=== PATIENT | male | born 1985 | race Caucasian/White ===

== ENCOUNTER 2017-11-25 20:42 | Emergency (ER) | payer BC, OTHER ==
[~2017-11-25] VITALS: Ht 172.7 cm; Wt 92.3 kg
[~2017-11-25 20:42] MED LIST: BIOF500C2 PO; DEXT1LIQ58 PO
[2017-11-25 20:53] VITALS: Ht 172.7 cm; Wt 92.3 kg
[2017-11-25] MEDS ORDERED: SODIUM CHLORIDE 0.9% 1000ML 1,000 ML IV STA (21:06)
[2017-11-25 21:33] LABS: BASO % 0.1 %; BASO ABS # 0.01 K/uL (0-0.2); EOS % 0.1 %; EOS ABS # 0.01 K/uL (0-0.5); HEMATOCRIT 40.8 % (42-52); HEMOGLOBIN 14.7 g/dL (14.0-18.0); IG# 0.04 K/uL (0.00-0.02); LYMPH % 5.9 %; LYMPH ABS # 0.81 K/uL (1.2-3.4); MEAN CELL VOLUME 86.8 fL (80-100); MEAN CORPUSCULAR HEMOGLOBIN 31.3 pg (25-34); MEAN PLATELET VOLUME 9.7 fL (7.4-10.4); MONO % 7.3 %; NEUT % 86.3 %; NEUT ABS # 11.91 K/uL (1.4-6.5); PLATELET COUNT 227 K/uL (130-400); RED CELL DISTRIBUTION WIDTH CV 12.5 % (11.5-14.5); RED CELL DISTRIBUTION WIDTH SD 40.2 fL (36.4-46.3); WHITE BLOOD COUNT 13.78 K/uL (4.8-10.8)
[2017-11-25 21:48] LABS: INFLUENZA B ANTIGEN Neg for Influ B (NEG)
[2017-11-25 21:56] LABS: CREATININE 1.21 mg/dl (0.60-1.40); POTASSIUM 3.4 mmol/L (3.5-5.1)
[2017-11-25 22:24] VITALS: TEMP 37.1
--- NOTE | 2017-11-25 22:31 | DIAGNOSTIC IMAGING REPORT ---
CHEST 2 VIEWS ROUTINE CLINICAL HISTORY: Cough and chills. COMPARISON STUDY: Chest radiograph February 16, 2010. FINDINGS: Lung volumes are normal. No pneumothorax or pleural effusion is noted. There is left lower lobe consolidation with obscuration of the left hemidiaphragm. Cardiomediastinal silhouette is normal. Pulmonary vascularity is normal. IMPRESSION: Moderate left lower lobe consolidation highly suggestive of pneumonia. Post treatment radiographs to ensure resolution are recommended. Electronically signed by: Fran Clark M.D. 11/25/2017 10:30 PM Dictated Date/Time: 11/25/2017 10:29 PM
[2017-11-25] MEDS ORDERED: DOXY100C76 PO (22:37)
[2017-11-25] MEDS ORDERED: PRVHFAIN INH (22:37)
[2017-11-25] MEDS ORDERED: DOXYCYCLINE HYCLATE 100 MG CAP PO ONE (22:45)
[2017-11-25 22:46] VITALS: BP 102/63; PULSE 96; O2SAT 96
--- NOTE | 2017-11-26 00:34 | EMERGENCY ROOM VISIT NOTE ---
History Report prepared by Pawan: Obie Petty Under the Supervision of: Dr. J Carlos Espitia M.D. First contact with patient: 21:00 Chief Complaint: FEVER Stated Complaint: FEVER & CHEST PAINS History of Present Illness The patient is a 32 year old male who presents to the Emergency Room with complaints of worsening pain in his left chest that began roughly 30 minutes ago. The patient states that he has been experiencing a "chest cold" since Saturday, with a persistent cough which also worsened this afternoon. His chest pain is worsened with deep inhalation. His cough is producing a mucous. He did experience alternating chills/fevers when his chest pain onset. The patient denies any melena, hematuria, vomiting, blood in the stool, vomiting nausea, or diarrhea. The patient did have a cardiac ablation when he was 15 years old secondary to chronic tachycardia. He does not use hormone therapy, and has not taken any long trips recently. Source of History: patient Onset: 30 minutes ago Position: chest (left) Timing: worsening Modifying Factors (Worsening): other (Deep inhalation) Associated Symptoms: + fevers, + chills, + cough, No vomiting Review of Systems See HPI for pertinent positives and negatives. A total of ten systems were reviewed and were otherwise negative. Past Medical & Surgical Hx of Tachycardia with Cardiac Ablation Family History No pertinent family history Social History Smoking Status: Never Smoker Alcohol Use: occasionally Drug Use: none Marital Status: single Occupation Status: employed Current/Historical Medications Scheduled Albuterol (Ventolin Hfa), 2 PUFFS INH QID Bioflavonoid Products (Vitamin C), 1 TAB PO DAILY Doxycycline Monohydrate (Monodox), 100 MG PO BID Scheduled PRN Dextromethorphan-Phenylephrine (Vicks Dayquil Cold & Flu), 1 DOSE PO UD PRN for Cold/Flu Symptoms Allergies Coded Allergies: Chocolate (Verified Allergy, Unknown, Unknown, 04/08/16) Dust (Verified Allergy, Unknown, Unknown, 04/08/16) Physical Exam Vital Signs Date Time Temp Pulse Resp B/P (MAP) Pulse Ox O2 Delivery O2 Flow Rate FiO2 11/25/17 22:46 96 18 102/63 96 11/25/17 22:24 37.1 96 18 102/63 96 Room Air 11/25/17 21:20 99 11/25/17 20:53 37.6 111 16 114/73 96 Room Air Physical Exam Physical Exam GENERAL: He is oriented to person, place, and time. He appears well-developed and well-nourished. He does not appear distressed. ____ HENT: Exam performed. Head: Normocephalic and atraumatic. Right Ear: External ear normal. No mastoid tenderness. Left Ear: External ear normal. No mastoid tenderness. Mouth/Throat: The oropharynx is clear and moist. No trismus in the jaw. No dental abscesses or uvula swelling. No oropharyngeal exudate or tonsillar abscesses. ____ EYES: Conjunctivae and EOM are normal. Pupils are equal, round, and reactive to light. Right eye exhibits no discharge. Left eye exhibits no discharge. No scleral icterus. ____ NECK: Normal range of motion. Neck supple. No JVD present. No spinous process tenderness present. No carotid bruit present. No rigidity. No tracheal deviation and normal range of motion present. No Brudzinski's sign and no Kernig 's sign noted. ____ CV: Tachycardic rate, regular rhythm, normal heart sounds and intact distal pulses. There is no peripheral edema. Palpable radial pulses bue. ____ PULM/CHEST: Effort normal and breath sounds normal. No respiratory distress. No stridor. He has no wheezes. He has no rales. Chest Wall: He exhibits no tenderness. ____ ABD: The abdomen is soft. Bowel sounds are normal. He has no distension. No mass is present. There is no tenderness. There is no rebound, no guarding, no Mueller's sign and no tenderness at McBurney's point. Rovsig negative MUSC/SKEL: Normal range of motion. There is no peripheral edema, tenderness or deformity. LYMPH: No cervical adenopathy. ____ NEURO: HD is alert and oriented to person, place, and time. He has normal strength. No cranial nerve deficit or sensory deficit. Coordination and gait normal. GCS eye subscore is 4. GCS verbal subscore is 5. GCS motor subscore is 6. Cerebellar tests wnl. ____ SKIN: Skin is warm and dry. He is not diaphoretic. ____ PSYCH: He has a normal mood and affect. His behavior is normal. Judgment and thought content normal. ____ Medical Decision & Procedures ER Provider Diagnostic Interpretation: Radiology results as stated below per my review and radiologist interpretation: CHEST 2 VIEWS ROUTINE CLINICAL HISTORY: Cough and chills. COMPARISON STUDY: Chest radiograph February 16, 2010. FINDINGS: Lung volumes are normal. No pneumothorax or pleural effusion is noted. There is left lower lobe consolidation with obscuration of the left hemidiaphragm. Cardiomediastinal silhouette is normal. Pulmonary vascularity is normal. IMPRESSION: Moderate left lower lobe consolidation highly suggestive of pneumonia. Post treatment radiographs to ensure resolution are recommended. Electronically signed by: Fran Clark M.D. 11/25/2017 10:30 PM Dictated Date/Time: 11/25/2017 10:29 PM Laboratory Results 11/25/17 21:20 Red Blood Count 4.70, Mean Corpuscular Volume 86.8, Mean Corpuscular Hemoglobin 31.3, Mean Corpuscular Hemoglobin Concent 36.0, Mean Platelet Volume 9.7, Neutrophils (%) (Auto) 86.3, Lymphocytes (%) (Auto) 5.9, Monocytes (%) (Auto) 7.3, Eosinophils (%) (Auto) 0.1, Basophils (%) (Auto) 0.1, Neutrophils # (Auto) 11.91, Lymphocytes # (Auto) 0.81, Monocytes # (Auto) 1.00, Eosinophils # (Auto) 0.01, Basophils # (Auto) 0.01 11/25/17 21:20 Test 11/25/17 21:20 11/25/17 21:22 11/25/17 21:25 White Blood Count 13.78 K/uL (4.8-10.8) Red Blood Count 4.70 M/uL (4.7-6.1) Hemoglobin 14.7 g/dL (14.0-18.0) Hematocrit 40.8 % (42-52) Mean Corpuscular Volume 86.8 fL (80-100) Mean Corpuscular Hemoglobin 31.3 pg (25-34) Mean Corpuscular Hemoglobin Concent 36.0 g/dl (32-36) Platelet Count 227 K/uL (130-400) Mean Platelet Volume 9.7 fL (7.4-10.4) Neutrophils (%) (Auto) 86.3 % Lymphocytes (%) (Auto) 5.9 % Monocytes (%) (Auto) 7.3 % Eosinophils (%) (Auto) 0.1 % Basophils (%) (Auto) 0.1 % Neutrophils # (Auto) 11.91 K/uL (1.4-6.5) Lymphocytes # (Auto) 0.81 K/uL (1.2-3.4) Monocytes # (Auto) 1.00 K/uL (0.11-0.59) Eosinophils # (Auto) 0.01 K/uL (0-0.5) Basophils # (Auto) 0.01 K/uL (0-0.2) RDW Standard Deviation 40.2 fL (36.4-46.3) RDW Coefficient of Variation 12.5 % (11.5-14.5) Immature Granulocyte % (Auto) 0.3 % Immature Granulocyte # (Auto) 0.04 K/uL (0.00-0.02) Anion Gap 12.0 mmol/L (3-11) Est Creatinine Clear Calc Drug Dose 95.7 ml/min Estimated GFR () 90.6 Estimated GFR (Non- 78.2 BUN/Creatinine Ratio 12.1 (10-20) Calcium Level 9.0 mg/dl (8.5-10.1) Bedside Lactic Acid Venous 1.94 mmol/L (0.90-1.70) Influenza Type A Antigen Neg for Influ A (NEG) Influenza Type B Antigen Neg for Influ B (NEG) Laboratory results reviewed by me Medications Administered Medications (Trade) Dose Ordered Sig/Nitin Route Start Time Stop Time Status Last Admin Dose Admin Sodium Chloride 1,000 ml @ 999 mls/hr Q1H1M STAT IV 11/25/17 21:06 11/25/17 22:06 DC 11/25/17 21:23 999 MLS/HR Doxycycline Hyclate (Vibramycin Cap) 100 mg ONE ONCE PO 11/25/17 22:45 11/25/17 22:46 DC 11/25/17 22:42 100 MG ECG Per My Interpretation Indication: chest pain Rate (beats per minute): 103 Findings: other (No TODD/STD, SD, QTC, QRS intervals within normal limits. ) ED Course 2100: The patient was evaluated in room B10. A complete history and physical exam was performed. 2105: Ordered Sodium Chloride 1000 mL @ 999 mL/hr IV. 2240: Upon reevaluation the patient's vitals are stable. Labs show a mild leukocytosis. BUN is within normal limits, Chest X-Ray is concerning for pneumonia. No HCAP risk factors, patient will be discharged with antibiotics. First dosage of antibiotics given in the department. DISCHARGE - Plan of care discussed with patient and questions answered. The patient was given both verbal and printed discharge instructions. The patient verbalized understanding and ability to comply. The patient is to seek outpatient follow up as noted in the discharge instructions. The patient verbalized understanding and ability to comply. The patient is discharged in stable condition. The patient was instructed to return for worsening symptoms. 2244: Ordered Doxycycline 100 mg PO. Medical Decision Upon reevaluation the patient's vitals are stable. Labs show a mild leukocytosis. BUN is within normal limits, Chest X-Ray is concerning for pneumonia. No HCAP risk factors, patient will be discharged with antibiotics. First dosage of antibiotics given in the department. DISCHARGE - Plan of care discussed with patient and questions answered. The patient was given both verbal and printed discharge instructions. The patient verbalized understanding and ability to comply. The patient is to seek outpatient follow up as noted in the discharge instructions. The patient verbalized understanding and ability to comply. The patient is discharged in stable condition. The patient was instructed to return for worsening symptoms. Medication Reconcilliation Current Medication List: was personally reviewed by me Blood Pressure Screening Patient's blood pressure: Normal blood pressure Impression Primary Impression: Pneumonia Scribe Attestation The scribe's documentation has been prepared under my direction and personally reviewed by me in its entirety. I confirm that the note above accurately reflects all work, treatment, procedures, and medical decision making performed by me. The chart was completed utilizing [employer] Speech voice recognition software. Grammatical errors, random word insertions, pronoun errors, and incomplete sentences are an occasional consequence of this system due to software limitations, ambient noise, and hardware issues. Any formal questions or concerns about the content, text, or information contained within the body of this dictation should be directly addressed to the physician for clarification. Departure Information Dispostion Home / Self-Care Prescriptions Albuterol (Ventolin Hfa) 60 Puffs/5400 Mcg Aers 2 PUFFS INH QID for 5 Days, #1 INHALER Prov: Nupur, J Carlos ., M.D. 11/25/17 Doxycycline Monohydrate (Monodox) 100 Mg Cap 100 MG PO BID for 7 Days, #14 CAP Prov: J Carlos Espitia M.D. 11/25/17 Referrals Eriberto Anthony MD (PCP) Forms HOME CARE DOCUMENTATION FORM, IMPORTANT VISIT INFORMATION Patient Instructions My [facility] Additional Instructions Return to the emergency department if you develop increased shortness of breath or cough up blood. Problem Qualifiers Primary Impression: Pneumonia Pneumonia type: due to unspecified organism Laterality: unspecified laterality Lung location: unspecified part of lung Qualified Codes: J18.9 - Pneumonia, unspecified organism
== END 2017-11-25 22:46 | disposition home or self-care (01) ==
LOC: C.EDB 20:43
DX: J18.9 Pneumonia, unspecified organism (principal); Z91.018 Allergy to other foods; Z91.048 Other nonmedicinal substance allergy status

== ENCOUNTER 2019-08-06 13:32 | Inpatient (IN) ==
[2019-08-06 14:11] LABS: Basophils # (auto) 0.02 K/uL (0-0.2); Basophils % (auto) 0.4 %; Eosinophils # (auto) 0.07 K/uL (0-0.5); Eosinophils % (auto) 1.4 %; Hematocrit (blood only) 42.4 % (42-52); Hemoglobin 14.7 g/dL (14.0-18.0); Immature Granulocytes # (auto) 0.01 K/uL (0.00-0.02); Immature Granulocytes % (auto) 0.2 %; Lymphocytes # (auto) 1.67 K/uL (1.2-3.4); Lymphocytes % (auto) 33.4 %; Mean Corpuscular Hemoglobin 30.9 pg (25-34); Mean Corpuscular Hgb Conc 34.7 g/dL (32-36); Mean Corpuscular Volume 89.3 fL (80-100); Mean Platelet Volume 9.5 fL (7.4-10.4); Monocytes # (auto) 0.49 K/uL (0.11-0.59); Monocytes % (auto) 9.8 %; Neutrophils # (auto) 2.74 K/uL (1.4-6.5); Neutrophils % (auto) 54.8 %; Platelet Count 277 K/uL (130-400); RDW Coefficient of Variation 12.5 % (11.5-14.5); RDW Standard Deviation 40.2 fL (36.4-46.3); Red Blood Count 4.75 M/uL (4.7-6.1)
[2019-08-06 14:32] LABS: BUN Creatinine Ratio 16.2 (10-20); Calcium 8.8 mg/dl (8.5-10.1); Creatinine Clr Calc Pharmacy 118.7 ml/min; Est GFR (African American) 111.2; Est GFR (Non-African American) 95.9; Potassium 3.6 mmol/L (3.5-5.1)
[2019-08-06 14:34] LABS: Acetaminophen < 2 ug/ml (10-30)
[2019-08-06 14:35] LABS: Salicylate < 1.7 mg/dl (2.8-20)
[2019-08-06 14:43] LABS: Albumin Globulin Ratio 1.1 (0.9-2); Bilirubin,Total 0.7 mg/dl (0.2-1); Globulin 3.6 gm/dl (2.5-4.0); Thyroid Stimulating Hormone 1.63 uIu/ml (0.300-4.500); Total Protein 7.6 gm/dl (6.4-8.2)
[2019-08-06 15:27] LABS: Appearance Urine Clear (Clear); Bilirubin Urine Negative (Negative); Blood Urine Negative (Negative); Color Urine Yellow; Glucose Urine UA Negative (Negative); Ketones Urine Negative (Negative); Leukocyte Esterase Urine Negative (Negative); Nitrite Urine Negative (Negative); Protein Urine Negative (Negative); Specific Gravity Urine 1.014 (1.000-1.030); Urobilinogen Urine Negative (Negative)
[2019-08-06 15:49] VITALS: O2SAT 99
[2019-08-06 15:51] LABS: Amphetamines+Metham, Urine Neg (Neg); Barbiturates, Urine Neg (Neg); Benzodiazepine, Urine Neg (Neg); Cocaine, Urine Neg (Neg); MDMA (Ecstacy), Urine Neg (Neg); Methadone, Urine Neg (Neg); Opiate, Urine Neg (Neg); Phencyclidine, Urine Neg (Neg)
--- NOTE | 2019-08-06 16:20 | Emergency Department Note ---
Entered by Chastity Ashley acting as a scribe for History of Present Illness General Chief complaint: Mental Health Evaluation Stated complaint: DEPRESSION, SENT BY DR ANTHONY Time Seen by Provider: 08/06/19 13:38 Source: patient History of Present Illness Onset (ago): day(s) 10 Location: head Pain Consistency: + other (worsening) Quality: + other (mental health) Associated symptoms: + denies other symptoms (abdominal pain, urinary symptoms, relationship issues, financial issues, issues with work), + loss of appetite and + other (abnormal sleeping, SI with plan); no nausea/vomiting The patient is a 34 year old male w/ PMHx appendicitis, RFA, and depression who presents to the ED for a mental health evaluation. The patient states that over the last 10 days he has had increasing suicidal thoughts. He reports that he has thought of several plans including use a gun or a car. He states that nothing has really bought them on and he has never had thoughts like this before. He reports that he has had a loss of appetite the last few days and has not been sleeping normally. He states that sometimes he sleeps too much and other times not enough. The patient states that he went to his PCP for it today and they sent him here. He notes that he does have access to guns, knives, and weapons. He notes that he was on Zoloft for a month last fall for depression. The patient notes that he doesnt remember the last time he moved his bowels. The patient denies abdominal pain, nausea, vomiting, urinary symptoms, relationship issues, financial issues, and issue with work. Allergies Allergy/AdvReac Type Severity Reaction Status Date / Time Dust Allergy Unknown Unknown Uncoded 01/22/18 07:58 Past Med/Surg History Medical History Acute appendicitis Depression Surgical History History of cardiac radiofrequency ablation (RFA) Family History Other No significant family history Social History Preferred Language: Uzbek Communication Ability: Effective Taker Off Braker Machine Required: No Beliefs That Will Affect Care: None marital status: Current Living Situation: Spouse current occupational status: employed Feels Safe at Home: Yes Smoking Status: Never smoker Review of Systems See HPI for pertinent positives & negatives. and A total of 10 systems reviewed and were otherwise negative Physical Exam Vital Signs Vital Signs - 24 hr 08/06/19 13:33 08/06/19 15:32 Temperature 36.4 C L Temperature Source Oral Pulse Rate 71 Pulse Rate [Finger] 68 Pulse Rhythm Regular Pulse Rhythm [Finger] Regular Pulse Strength Normal Pulse Strength [Finger] Normal Respiratory Rate 16 18 Respiratory Effort / Characteristics Non-Labored Non-Labored Spontaneous Respiratory Depth Normal Normal Respiratory Pattern Regular Regular Blood Pressure 135/81 Blood Pressure [Right Arm] 124/76 Blood Pressure Mean 99 Blood Pressure Mean [Right Arm] 92 Blood Pressure Position Sitting Blood Pressure Position [Right Arm] Lying Pulse Oximetry 98 99 Oxygen Delivery Method Room Air Room Air Sepsis Recent Fever Within 48 Hours No Sepsis Action Taken by Nursing No Action Required GENERAL: Well nourished, NAD, non-toxic. EYE EXAM: Normal conjunctiva. PERRL, no anisocoria and EOM's grossly intact w/o pain. OROPHARYNX: Moist mucous membranes. Grossly normal dentition. NECK: Supple, no nuchal rigidity, no adenopathy, non-tender. No signs of meningismus. LUNGS: Clear to auscultation. Normal chest wall mechanics. HEART: NSR, no MRG. ABDOMEN: Abdomen soft, non-tender, normo-active bowel sounds, no masses, no rebound or guarding. BACK: No CVA TTP. SKIN: No rashes and no bruising. UPPER EXTREMITIES: Upper extremities are grossly normal. LOWER EXTREMITIES: No pitting edema. No calf pain. NEURO EXAM: A&O x3, cranial nerves II-XII grossly intact, normal speech, moves all 4 extremities on command w/o issue. PSYCH: Positive SI with a plan. Negative HI or AVH. Flat affect. Course Course 1341: I reviewed the patient's outpatient note from today which states that he was thinking of suicide without a plan. He was referred to the ED. 1348: The patient was evaluated in room A5. A complete history and physical exam was performed. 1545: Psych recommends admission for the patient. 1707: The patient was accepted to [address] [place] [address] at this time. Medical Decision Making Differential Diagnosis Differential diagnoses considered include mood disorder, infection, hypoglycemia, electrolyte abnormalities, cardiac sources, intracerebral event, toxicologic, neurologic, as well as others. Medical Records Attestation: I reviewed the patient's medical records. I reviewed Dr. Marissa Bejarano's outpatient clinic note which was faxed over. T his noted a concern for suicidal ideation with possible plan. Home Medications Current Medication List: was personally reviewed by me Laboratory Data Attestation: I reviewed the patient's lab results. Result diagrams: 08/06/19 13:56 08/06/19 13:56 Lab Results 08/06/19 08/06/19 08/06/19 Range/Units 13:56 13:56 13:56 WBC 5.00 (4.8-10.8) K/uL RBC 4.75 (4.7-6.1) M/uL Hgb 14.7 (14.0-18.0) g/dL Hct 42.4 (42-52) % MCV 89.3 (80-100) fL MCH 30.9 (25-34) pg MCHC 34.7 (32-36) g/dL RDW Std Deviation 40.2 (36.4-46.3) fL RDW Coeff of Darius 12.5 (11.5-14.5) % Plt Count 277 (130-400) K/uL MPV 9.5 (7.4-10.4) fL Immature Gran % (Auto) 0.2 % Neut % (Auto) 54.8 % Lymph % (Auto) 33.4 % [place] % (Auto) 9.8 % Eos % (Auto) 1.4 % Baso % (Auto) 0.4 % Immature Gran # (Auto) 0.01 (0.00-0.02) K/uL Neut # (Auto) 2.74 (1.4-6.5) K/uL Lymph # (Auto) 1.67 (1.2-3.4) K/uL [place] # (Auto) 0.49 (0.11-0.59) K/uL Eos # (Auto) 0.07 (0-0.5) K/uL Baso # (Auto) 0.02 (0-0.2) K/uL Sodium 140 (136-145) mmol/L Potassium 3.6 (3.5-5.1) mmol/L Chloride 108 H (98-107) mmol/L Carbon Dioxide 28 (21-32) mmol/L Anion Gap 4.0 (3-11) BUN 16 (7-18) mg/dl Creatinine 1.01 (0.6-1.4) mg/dl Est Cr Clr Drug Dosing 118.7 ml/min Est GFR ( Amer) 111.2 Est GFR (Non-Af Amer) 95.9 BUN/Creatinine Ratio 16.2 (10-20) Glucose 112 H (70-99) mg/dl Calcium 8.8 (8.5-10.1) mg/dl Total Bilirubin 0.7 (0.2-1) mg/dl AST 15 (15-37) U/L ALT 30 (12-78) U/L Alkaline Phosphatase 51 (45-117) U/L Total Protein 7.6 (6.4-8.2) gm/dl Albumin 4.0 (3.4-5.0) gm/dl Globulin 3.6 (2.5-4.0) gm/dl Albumin/Globulin Ratio 1.1 (0.9-2) TSH 1.630 (0.300-4.500) uIu/ml Urine Color Urine Appearance (Clear) Urine pH (4.5-7.5) Ur Specific [place] (1.000-1.030) Urine Protein (Negative) Urine Glucose (UA) (Negative) Urine Ketones (Negative) Urine Blood (Negative) Urine Nitrite (Negative) Urine Bilirubin (Negative) Urine Urobilinogen (Negative) Ur Leukocyte Esterase (Negative) Salicylates < 1.7 L (2.8-20) mg/dl Urine Opiates Screen (Neg) Ur Methadone, Qual (Neg) Acetaminophen < 2 L (10-30) ug/ml Urine Barbiturates (Neg) Ur Phencyclidine (PCP) (Neg) U Amphetamin/Meth Scrn (Neg) MDMA (Ecstasy) Screen (Neg) U Benzodiazepines Scrn (Neg) Ur Cocaine Metabolite (Neg) U Marijuana (THC) Screen (Neg) Ethyl Alcohol mg/dL (0-3) mg/dl 08/06/19 08/06/19 08/06/19 Range/Units 13:56 14:50 14:50 WBC (4.8-10.8) K/uL RBC (4.7-6.1) M/uL Hgb (14.0-18.0) g/dL Hct (42-52) % MCV (80-100) fL MCH (25-34) pg MCHC (32-36) g/dL RDW Std Deviation (36.4-46.3) fL RDW Coeff of Darius (11.5-14.5) % Plt Count (130-400) K/uL MPV (7.4-10.4) fL Immature Gran % (Auto) % Neut % (Auto) % Lymph % (Auto) % [place] % (Auto) % Eos % (Auto) % Baso % (Auto) % Immature Gran # (Auto) (0.00-0.02) K/uL Neut # (Auto) (1.4-6.5) K/uL Lymph # (Auto) (1.2-3.4) K/uL [place] # (Auto) (0.11-0.59) K/uL Eos # (Auto) (0-0.5) K/uL Baso # (Auto) (0-0.2) K/uL Sodium (136-145) mmol/L Potassium (3.5-5.1) mmol/L Chloride (98-107) mmol/L Carbon Dioxide (21-32) mmol/L Anion Gap (3-11) BUN (7-18) mg/dl Creatinine (0.6-1.4) mg/dl Est Cr Clr Drug Dosing ml/min Est GFR ( Amer) Est GFR (Non-Af Amer) BUN/Creatinine Ratio (10-20) Glucose (70-99) mg/dl Calcium (8.5-10.1) mg/dl Total Bilirubin (0.2-1) mg/dl AST (15-37) U/L ALT (12-78) U/L Alkaline Phosphatase (45-117) U/L Total Protein (6.4-8.2) gm/dl Albumin (3.4-5.0) gm/dl Globulin (2.5-4.0) gm/dl Albumin/Globulin Ratio (0.9-2) TSH (0.300-4.500) uIu/ml Urine Color Yellow Urine Appearance Clear (Clear) Urine pH 8.0 H (4.5-7.5) Ur Specific [place] 1.014 (1.000-1.030) Urine Protein Negative (Negative) Urine Glucose (UA) Negative (Negative) Urine Ketones Negative (Negative) Urine Blood Negative (Negative) Urine Nitrite Negative (Negative) Urine Bilirubin Negative (Negative) Urine Urobilinogen Negative (Negative) Ur Leukocyte Esterase Negative (Negative) Salicylates (2.8-20) mg/dl Urine Opiates Screen Neg (Neg) Ur Methadone, Qual Neg (Neg) Acetaminophen (10-30) ug/ml Urine Barbiturates Neg (Neg) Ur Phencyclidine (PCP) Neg (Neg) U Amphetamin/Meth Scrn Neg (Neg) MDMA (Ecstasy) Screen Neg (Neg) U Benzodiazepines Scrn Neg (Neg) Ur Cocaine Metabolite Neg (Neg) U Marijuana (THC) Screen Neg (Neg) Ethyl Alcohol mg/dL < 3.0 (0-3) mg/dl Blood Pressure Blood Pressure Findings: Elevated blood pressure Blood Pressure Disposition: elevated BP felt to be situational MDM Narrative The patient is a 34 year old male w/ PMHx appendicitis, RFA, and depression who presents to the ED for a mental health evaluation. Patient was seen and evaluated at bedside. The patient did present with concerns for suicidal ideation and depression. The patient was seen at Dr. Anthony's office and referred. I did review the patient's outpatient clinical note by Dr. Anthony. The patient was complaining of increasing depressed mood. The patient also did relate that he did have a plan. The patient does have access to guns. The patient did have blood work completed. The patient was subsequently seen and evaluated by psych case consultant as he was medically clear. Patient was subsequently admitted voluntarily to [facility] for inpatient psychiatric treatment. Impression & Plan Suicidal ideations, Depressed mood Discharge Plan Visit Data *Final* Discharge Date/Time: 08/06/19 17:44 Chief Complaint: Mental Health Evaluation Stated Complaint: DEPRESSION, SENT BY DR ANTHONY ED Provider: Jace Holman Discharge Problem: Suicidal ideations, Depressed mood Patient Disposition: Admitted As Inpatient Discharge Instructions Interventions: ED Discharge Assessment Last Done: 08/06/19 17:44 The harry's documentation has been prepared under my direction and personally reviewed by me in its entirety. I confirm that the note above accurately reflects all work, treatment, procedures, and medical decision making performed by me.
[2019-08-06] MEDS ORDERED: MAGNESIUM HYDROXIDE SUSP 30 ML UDC PO PRN (19:42)
[2019-08-06] MEDS ORDERED: ACETAMINOPHEN 325 MG TAB PO PRN (19:42)
[2019-08-06] MEDS ORDERED: ALUMINUM/MAGNESIUM SUSP 30 ML UDC PO PRN (19:42)
[2019-08-06] MEDS ORDERED: BISMUTH SUBSALICYLATE PER ML OMNICELL CHARGE PO PRN (19:42)
[2019-08-06] MEDS ORDERED: SODIUM CHLORIDE 0.65% NA SOLN 45 ML (OCEAN) PRN (19:42)
[2019-08-07] MEDS ORDERED: SERTRALINE HCL 50 MG TABLET PO ONE ×2 (12:20→12:21)
--- NOTE | 2019-08-07 12:34 | History & Physical ---
Date of Service August 07, 2019 Impression / Recommendations Impression This 34-year-old man has a history of recurrent major depression beginning in childhood. He notes that for the past 3 years he has been experiencing progressively worsening depression, with accelerated feelings of depression in the past month, without any precipitating cause identified other than, perhaps, the fact that he has been less occupied with his usual source of work. In addition to depressed mood, crying spells, apathy, anhedonia, anergia, insomnia, and psychosocial withdrawal, he has had recurrent and escalating thoughts of suicide that include thoughts of crashing his car (while driving it) and shooting himself (with access to firearms). There is a family history of major depression and the patient reports that his father has a history of favorable response to antidepressant medications. Alcohol and other chemical substances do not appear to be a factor in this case. The patient enjoys the support of his and family. 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 (He has a bachelor's degree from [employer] in philosophy.) He had a trial of an unnamed medication during childhood (possibly Prozac), but does not work call the response. More recently, about a year ago, he was placed on sertraline at an unknown dose for 1 month by his primary care physician, but while he had no difficulty tolerating sertraline he did not go back to continue the medication and he believes that he was placed on a "starting dose." (1) Depression: 08/06/19 -Patient has a history of recurrent depression, beginning in childhood. Apart from what apparently was a brief trial of an antidepressant medication during childhood, and, more recently, a trial last year of sertraline at an unknown dose for 1 month, the patient has not had any formal psychiatric treatment. -We have admitted the patient to the [facility] behavioral health unit. He has been referred for individual, group, and activity therapies --and we are encouraging active participation. Family interventions were also recommended. -The patient reports that he tolerated sertraline last year without any noted side effects. Material risks and anticipated benefits of sertraline, including review of various side effects were reviewed with the patient. He has several questions and indicated understanding. Present on Admission?: Yes (2) Suicidal ideations: 08/06/19 -The patient reports a history of recurrent thoughts of suicide. He notes that these thoughts have become more intense and more pronounced in the past several weeks. The thoughts included thoughts of crashing his car (and these thoughts occur while he is actually driving a car) and he has also had recurrent thoughts of shooting himself, and has access to firearms. -The patient notes that he does not currently have suicidal intent, but is understandably concerned because the intensity of the suicidal thoughts has been increasing, both in terms of intensity and in terms of frequency. -The patient has been placed on suicide precautions. We have referred him for individual, group and activity therapies in order to assist the patient in improving his individual coping strategies. Present on Admission?: Yes Inventory Assets Strengths: Motivated to treatment. Supportive family ( in particular). Intelligent. Reasonable insight. The patient, for example, is able to recognize that his suicidal thoughts are part of an illness Needs: Depression. Resolution of suicidal thoughts. Improved individual coping strategies.. Risk Factors Assessment History of recurrent depression. Active suicidal thoughts. Male: Yes : Yes Do You Have Access To A Gun?: Yes Health Problems: No Mental Health Diagnoses: Yes Substance Use Disorders: No Previous Attempt: No Previous Psychiatric Hospitalization: No Hopelessness: No Smoker: No Protective Factors Assessment Gnosticism Beliefs: No : Yes Responsible for Young Children: Yes Employed: Yes ([employer]) Stable Relationships: Yes Supportive Family: Yes Good Rapport with Provider: Yes Absence of Any Risk Factors Above: No Psychiatric History Identifying Data MARY PEDROZA is a 34-year-old M who currently lives in the [place] with his and 11=year-old stepson. He has a history of recurrent depression and suicidal ideation, and was admitted on 08/06/19 17:24 on a 201 voluntary agreement Chief Complaint "Depression. Worsening thoughts of suicide." History of Present Illness The patient is a 34-year-old man who reports a history of depression dating back to his childhood. Patient describes the depression as being intermittent, but notes that it has been present and intensifying for the past 3 years. His reported symptoms of depression include depressed mood, crying spells, apathy, anhedonia, anergia, initial and intermittent insomnia, anxious rumination, anxious distress, and psychosocial withdrawal. Patient reports that he was given an antidepressant medication as a child, and believes that medication was Prozac. More recently, approximately a year ago, he was given a one-month prescription for sertraline (dose unknown) by his primary care physician. He reports that he took the sertraline for a month, experienced no side effects from it, but independently decided to not take the medication because he "[he does not] like the idea of taking medications and thought [he] could do it on [his] own." In recent weeks, the patient experienced worsening symptoms of depression and more frequent thoughts of suicide. 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 The patient's thoughts of suicide have been very specific, and he notes that when driving his car he will periodically have thoughts with an associated impulse to crashes car into a tree or driving off the road. There are also guns in his home, and his thoughts have included shooting himself. He reports that he does not have a history of suicide attempts, but notes that these thoughts have become more intrusive and more pronounced. He confided in his that he was having suicidal thoughts, and his took action by hiding his guns and escorted the patient to his primary care physician. The patient reported his suicidality to his primary care physician and arrangements were made for the patient to be evaluated for admission to the behavioral health unit at [facility]. Past Psychiatric History Previous Psych History: The patient reports that he was treated for depression as a child. He was placed on an antidepressant medication which he believes was Prozac, but he is not certain. He does not recall the dose of the medication and does not recall the name of the medication with any certainty. Subsequent to that, he has experienced recurrent episodes of depression. These episodes have varied in intensity and are often associated with anxious distress. Current Psychiatric Diagnosis: Major Depressive Disorder Outpatient Services: Patient participated in outpatient treatment for depression as a child. More recently, he was given an antidepressant medication (1 month course) by his primary care physician during the fall 2017. That medication reportedly was sertraline, at an unspecified dose. Patient reports that he tolerated sertraline well and noted no side effects, but after a 1 month trial decided to "tough it out" on his own. Previous Psych Admissions: Patient does not have a history of any previous inpatient psychiatric hospitalizations. Do You Have Access To A Gun?: Yes History of Previous Suicide Attempt: No Describe Attempts in the Past: Denies Past Medication Trials: Prozac (?) As a child, dose unknown. Sertraline in the fall 2017 for 1 month. Dose unknown. The patient had no difficulty tolerating sertraline, but discontinued the medication after a month. He notes that he believes that was "a low dose." Past Head Trauma/Neuro History History of Concussion/Seizure: No The patient believes that he may have experienced a concussion while playing sports in his youth. He notes that he has never been knocked unconscious and has no history of seizures. Allergies Allergy/AdvReac Type Severity Reaction Status Date / Time Dust Allergy Unknown Unknown Uncoded 01/22/18 07:58 Family History Family History of: Depression and Alcoholism/Drug Abuse Family Mental Health History Comment: brother has been a lobsterman alcoholic with some other substance use, father has depression and on meds. Patient is uncertain as to which medications his father is currently taking, but notes that his father does have a favorable response to medications for depression. Alcohol History Hx of Alcohol Use Over the Past 12 Months: Yes (1x montly, last drink this past weekend) AUDIT Total Score: 1 Smoking Use Have You Smoked or Used Tobacco Products in the Last 30 Days: No Smoking Status: Never smoker Substance History Hx of Prescription Med Misuse Over the Past 12 Months: No Hx of Over the Counter Med Misuse Over the Past 12 Months: No Hx of Inhalent Misuse Over the Past 12 Months: No Hx of Organic Substance Use Over the Past 12 Months: No Hx of Illegal Substances/Street Drug Use Over Past 12 Months: No Problems as a Result of Past Substance Use: None Identified Personal History Living Arrangements: Home Living Arrangements Comments: Patient lives with his of 5 years and his 11-year-old stepson. The patient and his serve as the fci parents of the 11-year-old's stepson, and the patient says that he functions in the role of father. Highest Grade Completed: College Highest Grade Completed Comment: Graduated from [employer], majored in Philosophy. Marital Status: Number Of Children: 1 Beliefs That Will Affect Care: None Patient History Medical History Acute appendicitis Depression Surgical History History of cardiac radiofrequency ablation (RFA) Family History Other No significant family history Social History Preferred Language: Romansh Communication Ability: Effective Bottom Stainer Required: No Beliefs That Will Affect Care: None marital status: Current Living Situation: Spouse current occupational status: employed Feels Safe at Home: Yes Smoking Status: Never smoker Review of Systems Review of Systems: All systems reviewed & are unremarkable except as noted in HPI & below The somatic history, review of systems, and physical examination is completed by Salomon Mccormick MD have been reviewed and are accepted for purposes of medical clearance to the behavioral health unit. Physical Exam Psychiatric: Orientation: alert, oriented x 3 and cooperative Apperance: appropriately dressed and appropriately groomed Eye Contact: + fair eye contact Motor Behavior: + psychomotor retardation The patient's speech is spontaneous, but slowed and hesitant. Affect: + depressed affect Mood: + depressed mood Thought Process: goal directed thought process and linear/logical thought process Thought Content: reality based without delusions Patient reports ongoing thoughts of suicide. Today, he reports that he feels he can contract for safety in the hospital, and notes that he feels Homicidal Thoughts: denies homicidal thoughts Hallucinations: no auditory hallucinations Cognition: recent memory grossly intact, remote memory grossly intact, attention grossly intact and language grossly intact Estimated Intelligence: + above average estimated intelligence Insight: + fair insight Judgement: good judgement Vital Signs (Past 24 Hours): Last Vital Signs Temp 36.5 C 08/07/19 06:38 Pulse 76 08/07/19 06:39 Resp 18 08/07/19 06:38 BP 114/75 08/07/19 06:39 Pulse Ox 99 08/06/19 17:32 Results & Data Laboratory Results Laboratory Results - last 24 hr 08/06/19 08/06/19 08/06/19 13:56 13:56 13:56 WBC 5.00 RBC 4.75 Hgb 14.7 Hct 42.4 MCV 89.3 MCH 30.9 MCHC 34.7 RDW Std Deviation 40.2 RDW Coeff of Darius 12.5 Plt Count 277 MPV 9.5 Immature Gran % (Auto) 0.2 Neut % (Auto) 54.8 Lymph % (Auto) 33.4 [place] % (Auto) 9.8 Eos % (Auto) 1.4 Baso % (Auto) 0.4 Immature Gran # (Auto) 0.01 Neut # (Auto) 2.74 Lymph # (Auto) 1.67 Inyo # (Auto) 0.49 Eos # (Auto) 0.07 Baso # (Auto) 0.02 Sodium 140 Potassium 3.6 Chloride 108 H Carbon Dioxide 28 Anion Gap 4.0 BUN 16 Creatinine 1.01 Est Cr Clr Drug Dosing 118.7 Est GFR ( Amer) 111.2 Est GFR (Non-Af Amer) 95.9 BUN/Creatinine Ratio 16.2 Glucose 112 H Calcium 8.8 Total Bilirubin 0.7 AST 15 ALT 30 Alkaline Phosphatase 51 Total Protein 7.6 Albumin 4.0 Globulin 3.6 Albumin/Globulin Ratio 1.1 TSH 1.630 Urine Color Urine Appearance Urine pH Ur Specific [place] Urine Protein Urine Glucose (UA) Urine Ketones Urine Blood Urine Nitrite Urine Bilirubin Urine Urobilinogen Ur Leukocyte Esterase Salicylates < 1.7 L Urine Opiates Screen Ur Methadone, Qual Acetaminophen < 2 L Urine Barbiturates Ur Phencyclidine (PCP) U Amphetamin/Meth Scrn MDMA (Ecstasy) Screen U Benzodiazepines Scrn Ur Cocaine Metabolite U Marijuana (THC) Screen Ethyl Alcohol mg/dL 08/06/19 08/06/19 08/06/19 13:56 14:50 14:50 WBC RBC Hgb Hct MCV MCH MCHC RDW Std Deviation RDW Coeff of Darius Plt Count MPV Immature Gran % (Auto) Neut % (Auto) Lymph % (Auto) [place] % (Auto) Eos % (Auto) Baso % (Auto) Immature Gran # (Auto) Neut # (Auto) Lymph # (Auto) [place] # (Auto) Eos # (Auto) Baso # (Auto) Sodium Potassium Chloride Carbon Dioxide Anion Gap BUN Creatinine Est Cr Clr Drug Dosing Est GFR ( Amer) Est GFR (Non-Af Amer) BUN/Creatinine Ratio Glucose Calcium Total Bilirubin AST ALT Alkaline Phosphatase Total Protein Albumin Globulin Albumin/Globulin Ratio TSH Urine Color Yellow Urine Appearance Clear Urine pH 8.0 H Ur Specific [place] 1.014 Urine Protein Negative Urine Glucose (UA) Negative Urine Ketones Negative Urine Blood Negative Urine Nitrite Negative Urine Bilirubin Negative Urine Urobilinogen Negative Ur Leukocyte Esterase Negative Salicylates Urine Opiates Screen Neg Ur Methadone, Qual Neg Acetaminophen Urine Barbiturates Neg Ur Phencyclidine (PCP) Neg U Amphetamin/Meth Scrn Neg MDMA (Ecstasy) Screen Neg U Benzodiazepines Scrn Neg Ur Cocaine Metabolite Neg U Marijuana (THC) Screen Neg Ethyl Alcohol mg/dL < 3.0 Current Inpatient Medications Current Inpatient Medications: Current Inpatient Medications Acetaminophen (Tylenol) 650 mg PO Q4H PRN PRN Reason: Headache or Minor Fever Stop: 09/05/19 19:41 Al Hydrox/Mg Hydrox/Simethicone (Maalox) 30 ml PO Q4H PRN PRN Reason: GI Upset Stop: 09/05/19 19:41 Bismuth Subsalicylate (Kaopectate) 15 ml PO PRN PRN PRN Reason: Loose Stool Stop: 09/05/19 19:41 Hydroxyzine HCl (Vistaril) 50 mg PO HSZ PRN PRN Reason: Insomnia Stop: 09/05/19 19:41 Hydroxyzine HCl (Vistaril) 25 mg PO Q4H PRN PRN Reason: Anxiety Stop: 09/05/19 19:41 Magnesium Hydroxide (Milk Of Magnesia) 30 ml PO DAILY PRN PRN Reason: Constipation Stop: 09/05/19 19:41 Sertraline HCl (Zoloft) 50 mg PO DAILY ONE Stop: 08/07/19 12:21 Sodium Chloride ([place] Nasal) 1 - 2 sprays NA PRN PRN PRN Reason: Nasal Dryness/Congestion Stop: 09/05/19 19:41
[2019-08-08] MEDS ORDERED: SERTRALINE HCL 50 MG TABLET PO SCH (09:00)
--- NOTE | 2019-08-08 11:59 | Psychiatric Progress Note ---
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 He notes that for the past 3 years he has been experiencing progressively worsening depression, with accelerated feelings of depression in the past month, without any precipitating cause identified other than, perhaps, the fact that he has been less occupied with his usual source of work. In addition to depressed mood, crying spells, apathy, anhedonia, anergia, insomnia, and psychosocial withdrawal, he has had recurrent and escalating thoughts of suicide that include thoughts of crashing his car (while driving it) and shooting himself (with access to firearms). During a family meeting with the patient's yesterday it was disclosed that patient and his have been having a substantial amount of fairly passionate disagreement regarding the parenting strategy for their 11-year-old son (the patient's fedeon, his 's biological child). The son, while only 11, has entered puberty early and is "acting like a teenager," as both parents agree. There seems to be a pretty clear need for a family therapy intervention given the fact that the patient's experience is that he is treated as an extension of his 's authority when it comes to the raising of the child. She refers to the roles as being "coparents," but if he disagrees with her approach she "pulls rank" and reminds him that the son is her biological child and she is in charge when it comes to how he is to be raised. The patient does not retract his assertion that he has been depressed for about 3 years recently, he does note that the fairly precipitous exacerbation of his feelings of depression with associated suicidal thoughts occurred within the context of the recent discord with his , as described above. 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 Alecia lopez, we are helping the patient identify specific personal goals towards which he may work. The patient reports that his primary goal at this point is to apply for and go to law school. He laughingly says, "what can you do with a philosophy degree? Well, you can raise patrick, or you can go to law school." He notes that he is interested in law, and he is quite intelligent. He notes that his plan is to use a temporary hiatus from work (during the winter) to look into taking the LSAT's, and applying for law school. (1) Depression: 08/07/19 -Patient has a history of recurrent depression, beginning in childhood. Apart from what apparently was a brief trial of an antidepressant medication during childhood, and, more recently, a trial last year of sertraline at an unknown dose for 1 month, the patient has not had any formal psychiatric treatment. -We have admitted the patient to the [facility] behavioral health unit. He has been referred for individual, group, and activity therapies --and we are encouraging active participation. Family interventions were also recommended. -The patient reports that he tolerated sertraline last year without any noted side effects. Material risks and anticipated benefits of sertraline, including review of various side effects were reviewed with the patient. He has several questions and indicated understanding. 08/08 -Today, the patient clarifies that while he has been experiencing some symptoms of depression during the course of the past 3 years, his most recent exacerbation of the depressive feelings, with co-occurring thoughts of suicide, occurred within the past 2 to 4 weeks and are largely related to unpleasantness at home, primarily regarding disputes with the patient is having with his concerning their 11-year-old son (the patient's stepson, his 's biological child) within the context of the child's current problematic behaviors. -We are working with the patient and his to help him better understand the need to truly coparent, and, within this context, the patient was able to tell his that he sometimes feels as if she sees him as on an extension of herself when it comes to parenting, rather than a true coparent. Both the patient and his have been counseled, for example, to remove themselves from the presence of their son when they disagree about parenting decision and discuss it primarily, among themselves, and present a united front. -The patient wakes poor sleep with depressed mood and irritability. The difference between his affect today and yesterday may be largely attributable to the fact that he had a full night sleep last night. We discussed strategies for managing insomnia. He notes that he has in the past had a favorable response to melatonin, and says that his plan would be to resume taking it. We also discussed other sleep aids that may include mild sedative such as hydroxyzine. -The patient's dose of sertraline is being increased to 100 mg a day. He indicates that he is tolerating it well without noted side effects. (2) Suicidal ideations: 08/07/19 -The patient reports a history of recurrent thoughts of suicide. He notes that these thoughts have become more intense and more pronounced in the past several weeks. The thoughts included thoughts of crashing his car (and these thoughts occur while he is actually driving a car) and he has also had recurrent thoughts of shooting himself, and has access to firearms. -The patient notes that he does not currently have suicidal intent, but is understandably concerned because the intensity of the suicidal thoughts has been increasing, both in terms of intensity and in terms of frequency. -The patient has been placed on suicide precautions. We have referred him for individual, group and activity therapies in order to assist the patient in improving his individual coping strategies. 08/08 -Patient reports that he is not experiencing suicidal thoughts at this point. He is working actively in individual, group, activity and family interventions towards the goal of achieving improved individual coping strategieswhile also understanding his 's concerns when he "albertina" by disappearing from the home for extensive periods of time. Inventory Assets Strengths: Motivated to treatment. Supportive family ( in particular). Intelligent. Reasonable insight. The patient, for example, is able to recognize that his suicidal thoughts are part of an illness Needs: Depression. Resolution of suicidal thoughts. Improved individual coping strategies.. Risk Factors Assessment Male: Yes : Yes Do You Have Access To A Gun?: Yes Health Problems: No Mental Health Diagnoses: Yes Substance Use Disorders: No Previous Attempt: No Previous Psychiatric Hospitalization: No Hopelessness: No Smoker: No Protective Factors Assessment Jewish Beliefs: No : Yes Responsible for Young Children: Yes Employed: Yes ([employer]) Stable Relationships: Yes Supportive Family: Yes Good Rapport with Provider: Yes Absence of Any Risk Factors Above: No Interval History Chief Complaint "Feeling much better. (Depression)". Review of Systems Sleep Information Total Hours of Sleep: 7 Meal Information Percent Meal Consumed - Breakfast: 100 Percent Meal Consumed - Lunch: 100 Percent Meal Consumed - Dinner: 100 Subjective Subjective Patient was seen & assessed and interval progress reviewed with treatment team. I met individually with the patient in order to assess his current mental status examination, evaluate his response to treatment, make any necessary changes to the patient's treatment regimen and coordination with the patient, and address issues, questions or concerns that may arise. The patient begins by telling me that after good night sleep he is feeling much brighter, and I commented that his affect also appears much brighter than it had yesterday. The patient discussed a family meeting that he had had yesterday with his and unit staff yesterday. An issue that had been suggested at the time of his intake, but not fully disclosed, was the fact that he and his are having certain disagreements regarding managing the behaviors of the patient's 11-year-old stepson. Sided behaviors include truancy and oppositional defiance. The patient noted today that he feels as if his wants to "coparent" the 11-year-old son (biologically her son), but what she means is that she is willing to "coparent" just as long as the patient, as the boy's stepfather, sees his role as the extension of the patient's as the biological parent. However, if he disagrees with a parenting decision that she makes, they do not discuss it but, instead, the 's tendency is simply to say "no, this is my son, and this is my decision." The patient acknowledges that he finds the situation at home at times to be quite stressful and acknowledges that he has been going for long drives, sometimes as long as 10 hours, without telling his where he is (other than to say he is "going out for a drive."). Understandably, of the patient's becomes very concerned with this happens, and we were able to discuss appropriate ways of helping to reassure his . The patient suggested that 1 way would be to allow her to track his whereabouts by activating GPS on his cell phone. There was also discussion of couples therapy to help the patient his learn to truly coparent their son. (The patient has served in the role of his stepson's father for approximately 6 years, and the boy's biological father is only peripherally involved.) Patient voices no thoughts of suicide since admission and notes that he is tolerating sertraline 50 mg a day well without any noted side effects. Physical Exam Psychiatric Orientation: alert, oriented x 3 and cooperative Apperance: appropriately dressed and appropriately groomed Eye Contact: good eye contact Motor Behavior: steady gait and station Speech: normal rate/rhythm/volume of speech Affect: euthymic affect The patient's affect is significantly more animated today. He smiles and laughs appropriately a number of times during the encounter. "My mood is much better. It really helps when I have a good night sleep." Thought Process: goal directed thought process, linear/logical thought process and clear/coherent thought process Thought Content: reality based without delusions Suicidal Thoughts: denies suicidal thoughts Homicidal Thoughts: denies homicidal thoughts Hallucinations: no auditory hallucinations Cognition: recent memory grossly intact, remote memory grossly intact, attention grossly intact and language grossly intact Estimated Intelligence: + above average estimated intelligence Insight: good insight Judgement: good judgement Vital Signs (Past 24 Hours) Last Vital Signs Temp 36.7 C 08/08/19 06:50 Pulse 91 H 08/08/19 06:50 Resp 18 08/08/19 06:50 BP 114/70 08/08/19 06:50 Pulse Ox 99 08/06/19 17:32 Results & Data Current Inpatient Medications Current Inpatient Medications: Current Inpatient Medications Acetaminophen (Tylenol) 650 mg PO Q4H PRN PRN Reason: Headache or Minor Fever Stop: 09/05/19 19:41 Al Hydrox/Mg Hydrox/Simethicone (Maalox) 30 ml PO Q4H PRN PRN Reason: GI Upset Stop: 09/05/19 19:41 Bismuth Subsalicylate (Kaopectate) 15 ml PO PRN PRN PRN Reason: Loose Stool Stop: 09/05/19 19:41 Hydroxyzine HCl (Vistaril) 50 mg PO HSZ PRN PRN Reason: Insomnia Stop: 09/05/19 19:41 Hydroxyzine HCl (Vistaril) 25 mg PO Q4H PRN PRN Reason: Anxiety Stop: 09/05/19 19:41 Magnesium Hydroxide (Milk Of Magnesia) 30 ml PO DAILY PRN PRN Reason: Constipation Stop: 09/05/19 19:41 Sodium Chloride ([place] Nasal) 1 - 2 sprays NA PRN PRN PRN Reason: Nasal Dryness/Congestion Stop: 09/05/19 19:41 Mental Health & Subst Abuse Tx Psychiatrist Name of Psychiatrist: Jose G Sánchez PA-C Psychiatrist's Date of Appointment with Psychiatrist: 09/10/19 Time of Appointment with Psychiatrist: 9am Therapist Name of Therapist: Bindu Connelly LCSW Therapist's Date of Therapist Appointment: 08/12/19 Time of Therapist Appointment: 11am Therapy Appointment Comment: Shawn Sanchez MccameyFORTINO Vehicle Service Attendant Name of Vehicle Service Attendant: Denies Post Discharge Appointments Primary Care Physician Name Of Family Doctor: Dr. Anthony Contact Information Discharge Discharge Address: [address] [place] [id number]
--- NOTE | 2019-08-09 07:32 | Psychiatric Progress Note ---
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 He has had recurrent and escalating thoughts of suicide that include thoughts of crashing his car (while driving it) and shooting himself (with access to firearms). Family meeting with his review recent discord regarding parenting, and he also notes that he has been dissatisfied with his career trajectory. He is working on healthy coping skills and his discharge safety plan, and if he continues to improve, would be appropriate for discharge tomorrow. He will need an interim appointment with his PCP, as his initial appointment at [facility] is not for 30 days. (1) Depression: 08/07/19 -Patient has a history of recurrent depression, beginning in childhood. Apart from what apparently was a brief trial of an antidepressant medication during childhood, and, more recently, a trial last year of sertraline at an unknown dose for 1 month, the patient has not had any formal psychiatric treatment. -We have admitted the patient to the [facility] behavioral health unit. He has been referred for individual, group, and activity therapies --and we are encouraging active participation. Family interventions were also recommended. -The patient reports that he tolerated sertraline last year without any noted side effects. Material risks and anticipated benefits of sertraline, including review of various side effects were reviewed with the patient. He has several questions and indicated understanding. 08/08 -Today, the patient clarifies that while he has been experiencing some symptoms of depression during the course of the past 3 years, his most recent exacerbation of the depressive feelings, with co-occurring thoughts of suicide, occurred within the past 2 to 4 weeks and are largely related to unpleasantness at home, primarily regarding disputes with the patient is having with his concerning their 11-year-old son (the patient's stepson, his 's biological child) within the context of the child's current problematic behaviors. -We are working with the patient and his to help him better understand the need to truly coparent, and, within this context, the patient was able to tell his that he sometimes feels as if she sees him as on an extension of herself when it comes to parenting, rather than a true coparent. Both the patient and his have been counseled, for example, to remove themselves from the presence of their son when they disagree about parenting decision and discuss it primarily, among themselves, and present a united front. -The patient wakes poor sleep with depressed mood and irritability. The difference between his affect today and yesterday may be largely attributable to the fact that he had a full night sleep last night. We discussed strategies for managing insomnia. He notes that he has in the past had a favorable response to melatonin, and says that his plan would be to resume taking it. We also discussed other sleep aids that may include mild sedative such as hydroxyzine. -The patient's dose of sertraline is being increased to 100 mg a day. He indicates that he is tolerating it well without noted side effects. 08/09 -Continue sertraline 100 mg daily. Patient reporting "head cloudiness," but denies other side effects. Continue to monitor. (2) Suicidal ideations: 08/07/19 -The patient reports a history of recurrent thoughts of suicide. He notes that these thoughts have become more intense and more pronounced in the past several weeks. The thoughts included thoughts of crashing his car (and these thoughts occur while he is actually driving a car) and he has also had recurrent thoughts of shooting himself, and has access to firearms. -The patient notes that he does not currently have suicidal intent, but is understandably concerned because the intensity of the suicidal thoughts has been increasing, both in terms of intensity and in terms of frequency. -The patient has been placed on suicide precautions. We have referred him for individual, group and activity therapies in order to assist the patient in improving his individual coping strategies. 08/08 -Patient reports that he is not experiencing suicidal thoughts at this point. He is working actively in individual, group, activity and family interventions towards the goal of achieving improved individual coping strategieswhile also understanding his 's concerns when he "albertina" by disappearing from the home for extensive periods of time. Inventory Assets Strengths: Motivated to treatment. Supportive family ( in particular). Intelligent. Reasonable insight. The patient, for example, is able to recogn ize that his suicidal thoughts are part of an illness Needs: Depression. Resolution of suicidal thoughts. Improved individual coping strategies.. Risk Factors Assessment Male: Yes : Yes Do You Have Access To A Gun?: Yes Health Problems: No Mental Health Diagnoses: Yes Substance Use Disorders: No Previous Attempt: No Previous Psychiatric Hospitalization: No Hopelessness: No Smoker: No Protective Factors Assessment Jain Beliefs: No : Yes Responsible for Young Children: Yes Employed: Yes ([employer]) Stable Relationships: Yes Supportive Family: Yes Good Rapport with Provider: Yes Absence of Any Risk Factors Above: No Interval History Identifying Information MARY EPDROZA is a 34-year-old M who currently lives in the [place] with his and 11-year-old fedeon. He has a history of recurrent depression and suicidal ideation, and was admitted on 08/06/19 17:24 on a 201 voluntary agreement. Chief Complaint "Okay". Review of Systems Sleep Information Total Hours of Sleep: 7.25 Meal Information Percent Meal Consumed - Breakfast: 100 Percent Meal Consumed - Lunch: 95 Percent Meal Consumed - Dinner: 100 Subjective Subjective Patient was seen & assessed and interval progress reviewed with nursing and social work. Staff report he is going to groups and participating in treatment. On my assessment, he reports his mood is improving, but does not yet feel ready to leave, stating his visited yesterday and they were discussing discharge plans and "got into a little tussle," which made him realize "it was premature." Describes difficulties with 11y/o step son which he brought up with , and her response was that he needed to focus on his own issues. Mood was lower and was feeling hopeless after argument with yesterday, but now feels she was trying to help and get him to focus on what he needs to do to recover. Notes he was "being a little too general" with his discharge plan, and is now going through the patient workbook and working on his plan with specific attention to friction within the family. He is also journalling which has been helpful. He has a mild "head cloudiness" which may be related to sertraline as starts soon after taking medication in the am, denies that it is impairing. Physical Exam Psychiatric Orientation: alert and cooperative Apperance: appropriately dressed, appropriately groomed and appeared stated age Eye Contact: good eye contact Motor Behavior: steady gait and station and no abnormal motor movements Speech: normal rate/rhythm/volume of speech Affect: + blunted affect "Okay." Thought Process: goal directed thought process and linear/logical thought process Thought Content: reality based without delusions Suicidal Thoughts: denies suicidal thoughts Homicidal Thoughts: denies homicidal thoughts Cognition: recent memory grossly intact, attention grossly intact and language grossly intact Estimated Intelligence: consistent with education level Insight: good insight Judgement: good judgement Vital Signs (Past 24 Hours) Last Vital Signs Temp 36.5 C 08/09/19 06:41 Pulse 72 08/09/19 06:42 Resp 18 08/09/19 06:41 BP 96/59 L 08/09/19 06:42 Pulse Ox 99 08/06/19 17:32 Results & Data Current Inpatient Medications Current Inpatient Medications: Current Inpatient Medications Acetaminophen (Tylenol) 650 mg PO Q4H PRN PRN Reason: Headache or Minor Fever Stop: 09/05/19 19:41 Last Admin: 08/08/19 17:23 Dose: 650 mg Documented by: Al Hydrox/Mg Hydrox/Simethicone (Maalox) 30 ml PO Q4H PRN PRN Reason: GI Upset Stop: 09/05/19 19:41 Bismuth Subsalicylate (Kaopectate) 15 ml PO PRN PRN PRN Reason: Loose Stool Stop: 09/05/19 19:41 Hydroxyzine HCl (Vistaril) 50 mg PO HSZ PRN PRN Reason: Insomnia Stop: 09/05/19 19:41 Last Admin: 08/08/19 22:15 Dose: 50 mg Documented by: Hydroxyzine HCl (Vistaril) 25 mg PO Q4H PRN PRN Reason: Anxiety Stop: 09/05/19 19:41 Magnesium Hydroxide (Milk Of Magnesia) 30 ml PO DAILY PRN PRN Reason: Constipation Stop: 09/05/19 19:41 Sertraline HCl (Zoloft) 100 mg PO QAM MAGDA Stop: 09/08/19 08:59 Sodium Chloride ([place] Nasal) 1 - 2 sprays NA PRN PRN PRN Reason: Nasal Dryness/Congestion Stop: 09/05/19 19:41 Mental Health & Subst Abuse Tx Psychiatrist Name of Psychiatrist: Jose G Sánchez PA-C Psychiatrist's Date of Appointment with Psychiatrist: 09/10/19 Time of Appointment with Psychiatrist: 9am Therapist Name of Therapist: Bindu DANGW Therapist's Date of Therapist Appointment: 08/12/19 Time of Therapist Appointment: 11am Therapy Appointment Comment: Vishnu Pina [facility], [place] Artificial Insemination Technician Name of Artificial Insemination Technician: Denies Post Discharge Appointments Primary Care Physician Name Of Family Doctor: Dr. Anthony Contact Information Discharge Discharge Address: [address] [place] [id number]
[2019-08-09] MEDS: SERTRALINE HCL 100 MG TABLET PO SCH (08:54)
[2019-08-10 06:49] VITALS: TEMP 98.4
[2019-08-10] MEDS: SERTRALINE HCL 100 MG TABLET PO SCH (08:36)
--- NOTE | 2019-08-10 10:30 | Discharge Summary ---
Date of Service August 10, 2019 History of Present Illness The patient is a 34-year-old man who reports a history of depression dating back to his childhood. Patient describes the depression as being intermittent, but notes that it has been present and intensifying for the past 3 years. His reported symptoms of depression include depressed mood, crying spells, apathy, anhedonia, anergia, initial and intermittent insomnia, anxious rumination, anxious distress, and psychosocial withdrawal. Patient reports that he was given an antidepressant medication as a child, and believes that medication was Prozac. More recently, approximately a year ago, he was given a one-month prescription for sertraline (dose unknown) by his primary care physician. He reports that he took the sertraline for a month, experienced no side effects from it, but independently decided to not take the medication because he "[he does not] like the idea of taking medications and thought [he] could do it on [his] own." In recent weeks, the patient experienced worsening symptoms of depression and more frequent thoughts of suicide. 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 The patient's thoughts of suicide have been very specific, and he notes that when driving his car he will periodically have thoughts with an associated impulse to crashes car into a tree or driving off the road. There are also guns in his home, and his thoughts have included shooting himself. He reports that he does not have a history of suicide attempts, but notes that these thoughts have become more intrusive and more pronounced. He confided in his that he was having suicidal thoughts, and his took action by hiding his guns and escorted the patient to his primary care physician. The patient reported his suicidality to his primary care physician and arrangements were made for the patient to be evaluated for admission to the behavioral health unit at [facility]. Physical Exam Psychiatric Orientation: alert and cooperative Apperance: appropriately dressed, appropriately groomed and appeared stated age Eye Contact: good eye contact Motor Behavior: steady gait and station and no abnormal motor movements Speech: normal rate/rhythm/volume of speech Affect: euthymic affect and mood congruent with affect "Good, a lot better." Thought Process: goal directed thought process and linear/logical thought process Thought Content: reality based without delusions Suicidal Thoughts: denies suicidal thoughts Homicidal Thoughts: denies homicidal thoughts Hallucinations: no auditory hallucinations and no visual hallucinations Cognition: recent memory grossly intact, attention grossly intact and language grossly intact Estimated Intelligence: consistent with education level Insight: good insight Judgement: good judgement Vital Signs (Past 24 Hours) Last Vital Signs Temp 36.9 C 08/10/19 06:47 Pulse 101 H 08/10/19 06:48 Resp 18 08/10/19 06:47 BP 121/72 08/10/19 06:48 Pulse Ox 99 08/06/19 17:32 Principal Diagnosis Major depressive disorder, recurrent, severe without psychosis. Psychiatric Data The patient was hospitalized for 4 days. On admission, he was started on sertraline for depression, and the dose was titrated to 100 mg daily. He tolerated it well with the exception of "head cloudiness and pressure," and at discharge was advised to try taking it at bedtime to minimize this. He was actively engaged in his treatment, attended and participated in groups and therapy, and worked on healthy coping skills and his discharge safety plan. He reported improved mood and resolution of suicidal thoughts. He processed psychosocial stressors contributing to mood symptoms, specifically recent discord with his regarding parenting his fedeon. He also talked about his general dissatisfaction with his career, and sense that at this point in his life he would have a clear career goal. He reported chronic insomnia, for which he had a trial of hydroxyzine 50 mg, but did not like the way it made him feel. He stated a plan to resume melatonin upon discharge, which he has had a favorable response to in the past. He had a family meeting with his on 08/07/2019; she shared that they had a very difficult week, and that her perception about the catalyst for the patient's decompensation was different from his. 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 She did not agree with the way the patient tried to handle the situation, and intervened, and the patient became upset, left, and drove to [place]. During the first week of July, he left on multiple occasions and went driving, and she was worried about him. He acknowledged his judgment had not been the best, and that he did not have a lot of supports or outlets. also shared concerns that he would be discharged prematurely, and encouraged him to really explore his stressors/triggers/ways to cope. She confirmed that firearms were removed from the home. They also discussed getting services for their son, and assistance with parenting. Day of Discharge Assessment Staff report the patient is attending and participating in groups and therapy, processing his stressors, and working on healthy ways to cope and discharge plans. On my assessment, he states that although hydroxyzine helped with sleep the past couple of nights, he does not like the way it made him feel, and plans to resume melatonin upon discharge. He continues to report a sense of "head c loudiness and pressure," but it is tolerable and he is agreeable to continuing the trial of sertraline, taking it at bedtime as noted above. He denies thoughts of harming himself or others, and feels he has a good discharge plan in place. He wants to work on a daily routine and increasing structure at home, focus on improving his relationship with his stepson, and spending time with his family. He states he recognizes it will take time to rebuild trust with his family, but reports hopefulness that things will continue to improve. He denies any safety concerns with discharge, and feels ready to go home today. Transition of Care Transition Of Care Record: was reviewed with the patient Advance Directives Advance Directives Information Provided: Yes Advance Directives: No Mental Health Advance Directive: No Advance Directives on File: No Living Will: No Power of Rubber Turner: No Advance Directives Reason:: Declines as Mental Health Visit. Risk Factors Assessment Risk factors were mitigated by admission to the inpatient unit, use of medications to target depressive symptoms, psychoeducation about his diagnosis and the recommended treatment, involving him in groups and therapy, working on healthy coping skills and a discharge safety plan, family meeting with his , referring him for outpatient psychiatric care and therapy, and processing stressors that led to exacerbation of depression. He is demonstrated improvement in mood and resolution of suicidal thoughts, is performing ADLs independently, eating and sleeping adequately, and requesting discharge. As he is no longer at acute risk of harm to himself, he can be managed as an outpatient at this time. He does not have risk factors for harm to others. Male: Yes : Yes Do You Have Access To A Gun?: Yes Health Problems: No Mental Health Diagnoses: Yes Substance Use Disorders: No Previous Attempt: No Previous Psychiatric Hospitalization: No Hopelessness: No Smoker: No Protective Factors Assessment Christianity Beliefs: No : Yes Responsible for Young Children: Yes Employed: Yes ([employer]) Stable Relationships: Yes Supportive Family: Yes Good Rapport with Provider: Yes Absence of Any Risk Factors Above: No Tobacco Cessation at Discharge Tobacco Cessation Medication Prescribed at Discharge: Not Applicable/Non-Smoker Total Time Total Time Spent: Greater Than 30 Minutes Total Time Includes: Examination of the patient, Discharge Planning and Medication Reconciliation Discharge Data Lab Results 08/06/19 08/06/19 08/06/19 13:56 13:56 13:56 WBC 5.00 RBC 4.75 Hgb 14.7 Hct 42.4 MCV 89.3 MCH 30.9 MCHC 34.7 RDW Std Deviation 40.2 RDW Coeff of Darius 12.5 Plt Count 277 MPV 9.5 Immature Gran % (Auto) 0.2 Neut % (Auto) 54.8 Lymph % (Auto) 33.4 [place] % (Auto) 9.8 Eos % (Auto) 1.4 Baso % (Auto) 0.4 Immature Gran # (Auto) 0.01 Neut # (Auto) 2.74 Lymph # (Auto) 1.67 [place] # (Auto) 0.49 Eos # (Auto) 0.07 Baso # (Auto) 0.02 Sodium 140 Potassium 3.6 Chloride 108 H Carbon Dioxide 28 Anion Gap 4.0 BUN 16 Creatinine 1.01 Est Cr Clr Drug Dosing 118.7 Est GFR ( Amer) 111.2 Est GFR (Non-Af Amer) 95.9 BUN/Creatinine Ratio 16.2 Glucose 112 H Calcium 8.8 Total Bilirubin 0.7 AST 15 ALT 30 Alkaline Phosphatase 51 Total Protein 7.6 Albumin 4.0 Globulin 3.6 Albumin/Globulin Ratio 1.1 TSH 1.630 Urine Color Urine Appearance Urine pH Ur Specific York Urine Protein Urine Glucose (UA) Urine Ketones Urine Blood Urine Nitrite Urine Bilirubin Urine Urobilinogen Ur Leukocyte Esterase Salicylates < 1.7 L Urine Opiates Screen Ur Methadone, Qual Acetaminophen < 2 L Urine Barbiturates Ur Phencyclidine (PCP) U Amphetamin/Meth Scrn MDMA (Ecstasy) Screen U Benzodiazepines Scrn Ur Cocaine Metabolite U Marijuana (THC) Screen Ethyl Alcohol mg/dL 08/06/19 08/06/19 08/06/19 13:56 14:50 14:50 WBC RBC Hgb Hct MCV MCH MCHC RDW Std Deviation RDW Coeff of Darius Plt Count MPV Immature Gran % (Auto) Neut % (Auto) Lymph % (Auto) [place] % (Auto) Eos % (Auto) Baso % (Auto) Immature Gran # (Auto) Neut # (Auto) Lymph # (Auto) [place] # (Auto) Eos # (Auto) Baso # (Auto) Sodium Potassium Chloride Carbon Dioxide Anion Gap BUN Creatinine Est Cr Clr Drug Dosing Est GFR ( Amer) Est GFR (Non-Af Amer) BUN/Creatinine Ratio Glucose Calcium Total Bilirubin AST ALT Alkaline Phosphatase Total Protein Albumin Globulin Albumin/Globulin Ratio TSH Urine Color Yellow Urine Appearance Clear Urine pH 8.0 H Ur Specific York 1.014 Urine Protein Negative Urine Glucose (UA) Negative Urine Ketones Negative Urine Blood Negative Urine Nitrite Negative Urine Bilirubin Negative Urine Urobilinogen Negative Ur Leukocyte Esterase Negative Salicylates Urine Opiates Screen Neg Ur Methadone, Qual Neg Acetaminophen Urine Barbiturates Neg Ur Phencyclidine (PCP) Neg U Amphetamin/Meth Scrn Neg MDMA (Ecstasy) Screen Neg U Benzodiazepines Scrn Neg Ur Cocaine Metabolite Neg U Marijuana (THC) Screen Neg Ethyl Alcohol mg/dL < 3.0 Hospital Course (1) Depression: 08/07/19 -Patient has a history of recurrent depression, beginning in childhood. Apart from what apparently was a brief trial of an antidepressant medication during childhood, and, more recently, a trial last year of sertraline at an unknown dose for 1 month, the patient has not had any formal psychiatric treatment. -We have admitted the patient to the [facility] behavioral health unit. He has been referred for individual, group, and activity therapies --and we are encouraging active participation. Family interventions were also recommended. -The patient reports that he tolerated sertraline last year without any noted side effects. Material risks and anticipated benefits of sertraline, including review of various side effects were reviewed with the patient. He has several questions and indicated understanding. 08/08 -Today, the patient clarifies that while he has been experiencing some symptoms of depression during the course of the past 3 years, his most recent exacerbation of the depressive feelings, with co-occurring thoughts of suicide, occurred within the past 2 to 4 weeks and are largely related to unpleasantness at home, primarily regarding disputes with the patient is having with his concerning their 11-year-old son (the patient's maylin, his 's biological child) within the context of the child's current problematic behaviors. -We are working with the patient and his to help him better understand the need to truly coparent, and, within this context, the patient was able to tell his that he sometimes feels as if she sees him as on an extension of herself when it comes to parenting, rather than a true coparent. Both the patient and his have been counseled, for example, to remove themselves from the presence of their son when they disagree about parenting decision and discuss it primarily, among themselves, and present a united front. -The patient wakes poor sleep with depressed mood and irritability. The difference between his affect today and yesterday may be largely attributable to the fact that he had a full night sleep last night. We discussed strategies for managing insomnia. He notes that he has in the past had a favorable response to melatonin, and says that his plan would be to resume taking it. We also discussed other sleep aids that may include mild sedative such as hydroxyzine. -The patient's dose of sertraline is being increased to 100 mg a day. He indicates that he is tolerating it well without noted side effects. 08/09 -Continue sertraline 100 mg daily. Patient reporting "head cloudiness," but denies other side effects. Continue to monitor. 08/10 -Patient reports head cloudiness that improves throughout the day; may be due in part to hydroxyzine, which she does not plan to continue at home. Advised taking sertraline at bedtime to see if this helps. (2) Suicidal ideations: 08/07/19 -The patient reports a history of recurrent thoughts of suicide. He notes that these thoughts have become more intense and more pronounced in the past several weeks. The thoughts included thoughts of crashing his car (and these thoughts occur while he is actually driving a car) and he has also had recurrent thoughts of shooting himself, and has access to firearms. -The patient notes that he does not currently have suicidal intent, but is understandably concerned because the intensity of the suicidal thoughts has been increasing, both in terms of intensity and in terms of frequency. -The patient has been placed on suicide precautions. We have referred him for individual, group and activity therapies in order to assist the patient in improving his individual coping strategies. 08/08 -Patient reports that he is not experiencing suicidal thoughts at this point. He is working actively in individual, group, activity and family interventions towards the goal of achieving improved individual coping strategieswhile also understanding his 's concerns when he "albertina" by disappearing from the home for extensive periods of time. 08/10 -Reviewed healthy coping skills and extensive discharge safety plan. Patient denying suicidal thoughts consistently, no longer at acute risk of harm to himself. Mental Health & Subst Abuse Tx Psychiatrist Name of Psychiatrist: Jose G Sánchez PA-C Psychiatrist's Date of Appointment with Psychiatrist: 09/10/19 Time of Appointment with Psychiatrist: 9am Psychiatric Appointment Comment: [address] [place] [address] Psychiatrist Release of Information: Obtained, Reviewed and Signed Therapist Name of Therapist: Bindu Connelly LCSW Therapist's Date of Therapist Appointment: 08/12/19 Time of Therapist Appointment: 11am Therapy Appointment Comment: [address], [address] [place], [place] Therapist Release of Information: Obtained, Reviewed and Signed Chief Innovation Officer Name of Chief Innovation Officer: Denies Post Discharge Appointments Primary Care Physician Name Of Family Doctor: Dr. [facility] Date of Appointment with PCP: 08/13/19 Time of Appointment with PCP: 11:05 Provider Appointment Comment: [facility] Release of Information: Obtained, Reviewed and Signed Smoking Cessation Counseling Tobacco Cessation Medication Prescribed at Discharge: Not Applicable/Non-Smoker Contact Information Discharge Discharge [address]: [address] [place] [id number] Discharge Plan Discharge Items Patient Disposition: Home - Self-Care Reason For Visit: MAJOR DEPRESSIVE DISORDER Discharge Diagnosis: Major depressive disorder, recurrent Activity: Per Instructions section Non-emergency contact: Primary Care Provider, Psychiatrist and Therapist Call non-emergency contact if: you have any medication questions and your symptoms worsen Follow-up/Referrals: Eriberto Anthony MD [Primary Care Provider] - Diet: Regular Addtl Attending Provider Instructions: SPECIAL CARE INSTRUCTIONS: 1. Follow through with your scheduled aftercare appointments. If unable to keep an appointment, please call to reschedule. 2. Take your medication only as prescribed. Medication should not be changed or stopped without the approval of your doctor. In the event of worsening symptoms or concerns about side effects, contact your doctor immediately. 3. Utilize new healthy coping skills, anger management skills, and stress management skills learned during your hospitalization. Journal feelings and process them with a support person. Identify stressors or situations that may result in relapse, deterioration or inappropriate behaviors and develop a plan to deal with those issues. 4. If your coping skills are ineffective and you are in crisis, contact your outpatient providers for direction. If unable to reach your providers, please call the CAN HELP LINE AT or go to the closest Emergency Room. 5. Avoid alcohol and un-prescribed drugs. 6. You have been provided with the Mental Health Advance Directives Pamphlet for your review. AFTERCARE APPOINTMENTS: * Please call your insurance company prior to your scheduled appointment to confirm your aftercare providers are covered. Take your insurance information to your appointments. WHO TO CALL AND WHEN: Medical Emergencies: For questions or emergencies related to your hospital stay, please contact the Inpatient Behavioral Health Unit at [phone]. A vehicle maintenance technician is on-call 18/03 for the Behavioral Health Unit for emergencies At any time you feel your situation is an emergency, you may also call 911 immediately. Your Doctors Instructions noted above were prepared by provider María Vallejo MD. Pending Studies at Discharge: No Stand-Alone Forms: [facility], Smoking Cessation, Suicide Prevention Resources Medications and DC Order Prescriptions: New sertraline 100 mg Tablet 100 mg PO QAM Qty: 30 RF: 0 Discharge Orders: Discharge Order (Routine); Ordered 08/10/19 Ordered By: María Vallejo Admission Data Admit Date/Time: 08/06/19 17:24 Attending Provider: María Vallejo Admit Provider: Thu Argueta Primary Care Provider: Eriberto Anthony Other Interventions: PSY Interdisciplinary Discharge Planning Last Done: 08/10/19 09:32 Coding Level of Care Code 68538 D/C day mgmt > 30 min Diagnoses Depression F32.9 Suicidal ideations R45.856
[2019-08-10 10:42] VITALS: BP 96/59; PULSE 72
== END 2019-08-10 11:50 | disposition home or self-care (01) | DRG 885 ==
LOC: ED 13:32 → 3S 17:24 → SUATTDRO 17:24 → 3S 17:44